=== PATIENT | male | born 1970 | race Caucasian/White ===

== ENCOUNTER 2017-04-15 08:46 | Day surgery (SDC) | payer OTHER ==
[~2017-04-15] VITALS: Ht 172.7 cm; Wt 122.5 kg
[2017-04-15] MEDS ORDERED: GLIPIZIDE10 M2 PO (09:04)
[2017-04-15] MEDS ORDERED: BELVIQ10 MG (09:05)
[2017-04-15] MEDS ORDERED: LISINOPRIL20 MG PO (09:05)
[2017-04-15] MEDS ORDERED: LIPITOR20 M1 PO (09:05)
[2017-04-15] MEDS ORDERED: INVOKAMET (09:05)
[2017-04-15] MEDS ORDERED: ASPIRIN81 MG PO (09:05)
[2017-04-15 11:23] VITALS: BP 119/69
== END 2017-04-15 11:35 | disposition home or self-care (01) | DRG 394 ==
LOC: ENDO 08:46
PROVIDERS: ATTEND Surgery
PROC: 0DJD8ZZ Inspection of Lower Intestinal Tract, Via Natural or Artificial Opening Endoscopic (ICD-10-PCS; principal; 2017-04-15)
DX: K62.89 Other specified diseases of anus and rectum (principal); K62.5 Hemorrhage of anus and rectum; K64.8 Other hemorrhoids; K57.30 Diverticulosis of large intestine without perforation or abscess without bleeding; E11.9 Type 2 diabetes mellitus without complications; K21.9 Gastro-esophageal reflux disease without esophagitis